=== PATIENT | female | born 1950 | race Caucasian/White ===

== ENCOUNTER 2016-08-13 16:07 | Emergency (ER) | payer MEDICARE ==
[2016-08-13 16:07] VITALS: BMI 42.5
[2016-08-13 16:14] VITALS: BP 111/68; PULSE 82; RESP 20; TEMP 98.5; O2SAT 100
--- NOTE | 2016-08-13 17:20 | C.PDOC ---
History Of Present Illness 65 yr old female presents to the ER with complaints of pain to the medial aspect of the left ankle for the past 5 days. Patient states the pain is made worse with movement. Denies any recent trauma, injury, foot pain, calf pain, leg pain, back pain, weakness or numbness. PMD Inder Time Seen by Provider: 08/13/16 16:42 Chief Complaint (Nursing): Lower Extremity Problem/Injury History Per: Patient History/Exam Limitations: no limitations Onset/Duration Of Symptoms: Days (5) Current Symptoms Are (Timing): Still Present Recent travel outside of the [place]: No - Ankle/Foot Description Of Injury: denies: Fell, Struck With Object, Struck Against Object, Twisted Past Medical History Reviewed: Historical Data, Nursing Documentation, Vital Signs Vital Signs: Last Vital Signs Temp 98.5 F 08/13/16 16:12 Pulse 82 08/13/16 16:12 Resp 20 08/13/16 16:12 BP 111/68 08/13/16 16:12 Pulse Ox 100 08/13/16 17:54 - Medical History PMH: HTN Surgical History: Appendectomy (at age 18), Cholecystectomy (1994) Family History: States: No Known Family Hx - Social History Hx Alcohol Use: No Hx Substance Use: No - Immunization History Hx Tetanus Toxoid Vaccination: No Hx Influenza Vaccination: No Review Of Systems Except As Marked, All Systems Reviewed And Found Negative. Musculoskeletal: Positive for: Other ((+) Left ankle pain). Negative for: Leg Pain, Foot Pain Neurological: Negative for: Weakness, Numbness Physical Exam - Physical Exam Appears: Non-toxic, No Acute Distress Skin: Warm, Dry, No Rash Head: Atraumatic, Normacephalic Chest: Symmetrical, No Tenderness Cardiovascular: Rhythm Regular, No Murmur Respiratory: Normal Breath Sounds, No Rales, No Rhonchi, No Stridor, No Wheezing Extremity: Normal ROM, Tenderness (Mild tenderness to palpation to the medial aspect of the right ankle ), No Calf Tenderness, Capillary Refill (<2), No Deformity, Other ((+) Multiple vericose veins on bilateral legs, more prominent in the bilateral feets. Normal color. ) Pulses: Left Dorsalis Pedis: Normal, Right Dorsalis Pedis: Normal Neurological/Psych: Oriented x3, Normal Speech, Normal Motor ED Course And Treatment O2 Sat by Pulse Oximetry: 100 Medical Decision Making Medical Decision Making: IMPRESSION: 65 yo F c/o atraumatic pain in the medial R ankle with multiple varicose veins in b/l lower extremities. PLAN: * Tylenol PO Given tylenol po. Pt given Rx for tylenol, advised to wear compression socks. Was advised to f/u with pmd and podiatry referral in 1-2 days without fail for re-evaluation, instructed to return to the ER at any time for any new or worsening symptoms. Pt verbalize understanding of instructions, given the opportunity to ask any questions. Disposition - Disposition Referrals: Lupe Oden DPM [Staff Provider] - Disposition: HOME/ ROUTINE Disposition Time: 17:20 Condition: STABLE Prescriptions: Acetaminophen [Tylenol 325mg tab] 650 mg PO Q4H PRN #30 tab PRN Reason: Pain, Moderate (4-7) Instructions: Arthralgia (ED), Tendinitis (ED) Print Language: ARMENIAN - Clinical Impression Clinical Impression: Ankle pain, right, Tendinitis - PA / MANAGER FITNESS / Resident Statement MD/DO has reviewed & agrees with the documentation as recorded. - Scribe Statement The provider has reviewed the documentation as recorded by the Scribe Susan Garduno All medical record entries made by the Scribe were at my direction and personally dictated by me. I have reviewed the chart and agree that the record accurately reflects my personal performance of the history, physical exam, medical decision making, and the department course for this patient. I have also personally directed, reviewed, and agree with the discharge instructions and disposition.
== END 2016-08-13 17:40 | disposition home or self-care (01) ==
LOC: C.ER 16:07
DX: M77.9 Enthesopathy, unspecified (principal); M25.571 Pain in right ankle and joints of right foot